=== PATIENT | female | born 1965 | race Caucasian/White ===

== ENCOUNTER 2017-03-22 09:09 | Day surgery (SDC) | payer OTHER ==
[~2017-03-22] VITALS: Ht 174 cm; Wt 76.2 kg
[~2017-03-22 09:09] MED LIST: ATEN50TA PO; FEXO1TAB8 PO; LIDOCAINE 1% (10mg/ml) 2ml SDV INJ ONE; LR 1,000 ML IV SCH; OMEP40CA52 PO; SERT100T12 PO; SIMV20TA6 PO
[2017-03-22 09:23] VITALS: BP 135/87; PULSE 72; RESP 18; TEMP 98.1; O2SAT 97; Ht 174 cm; Wt 76.2 kg
--- NOTE | 2017-03-22 10:48 | ANESPREOP ---
Anesthesia Record Date and Time DATE: 03/22/17 TIME: 10:47 Proposed Surgical Procedure COLONOSCOPY AND EGD NPO since: 2199 Allergies: Coded Allergies: No Known Allergies (Unverified , 03/22/17) Ht/Wt/BMI Height: 5 ' 8.50 " Weight: 76.200 kg BMI: 25.2 kg/m2 Vital Signs Date Time Temp Pulse Resp B/P Pulse Ox O2 Delivery O2 Flow Rate FiO2 03/22/17 09:23 98.1 72 18 135/87 97 Room Air Medications Inpatient Medications Current Medications Medications (Trade) Dose Ordered Sig/Kyle Start Time Stop Time Status Last Admin Dose Admin Lactated Ringer's (Lactated Ringers) 1,000 ml @ 50 mls/hr Q20H 03/22/17 07:00 03/22/17 09:47 50 MLS/HR Atenolol (Atenolol) 50 Mg Tablet, 1 TAB PO DAILY, (Reported) Last Taken: on 03/21/17 0800 Fexofenadine/Pseudoephedrine (Mary-D 12 Hour Tablet) 1 Each Tab.er.12h, 1 TAB PO DAILY, (Reported) Last Taken: on 03/21/17 0800 Omeprazole (Omeprazole) 40 Mg Capsule.dr, 1 TAB PO DAILY, (Reported) Last Taken: on 03/21/17 0800 Sertraline (Sertraline) 100 Mg Tablet, 1 TAB PO DAILY, (Reported) Last Taken: on 03/21/17 0800 Simvastatin (Simvastatin) 20 Mg Tablet, 1 TAB PO DAILY, (Reported) Last Taken: on 03/21/17 0800 Currently on Beta Courtney: Yes Beta Courtney Last Taken: ATENOLOL @ 0800 03/22/17 Medical/Surgical History Anesthesia PMH: Reports: *Hypertension, Anesthesia Reactions (NO AIRWAY ISSUES , VOMITING), Hiatal Hernia, Reflux, Denies: Cancer, Clotting Problems, Glaucoma , Malignant Hyperthermia, Sleep Apnea Smoking Status: Current every day smoker Has pt. smoked today?: No # of Years: 32 Substance Use Type: does not use Alcohol Intake: none HX of Last Menstrual Period: PARTIAL HYST. Past Surgical History Orthopedic Surgeries: Abdominal Surgeries: Genitourinary Surgeries: Cardiac Surgeries: Endocrine Surgeries: Reproductive Surgeries: Yes - PARTIAL HYST., C.SECTION Neurological Surgeries: Ear Surgeries: Nose Surgeries: Throat Surgeries: Other Surgeries: Yes - cystocele, rectocele per h&p Anesthesia Adverse Reactions: FOUND nausea and vomiting Family Hx of Anesthesia Advers: none Hx of Motion Sickness: No Physical Exam Respiratory: Bilat breath sounds equal, Lungs clear Cardiovascular: FOUND Regular rate, rhythm Airway Assessment Mallampati Score: I TMD: 3 Fingerbreadths Neck Extension: Good Teeth: Chipped Teeth/Crowns Overall Assessment: No Airway Concerns ASA: 2 Plan Anesthesia Plan: TIVA, GETA Discussion Discussed risks/options/alternatives of anesthesia and questions answered. Patient consents. Nursing pain assessment noted. Present: Family Member Attestation Statement Prior to the delivery of any anesthetic medication, I examined the patient, developed the plan, obtained the patient's consent and discussed the risk and benefits of the procedure with the patient/guardian. BURAK HARE CRNA March 22, 2017 10:48
[2017-03-22] MEDS ORDERED: PROPOFOL 500mg 50 ML IV ONE ×2 (11:00→12:25)
[2017-03-22] MEDS ORDERED: SCOPOLAMINE 1.5 MG PATCH TD ONE (11:00)
[2017-03-22] MEDS ORDERED: LIDOCAINE VISCOUS 2% Oral Soln 15ml UD ONE (11:50)
[2017-03-22] MEDS ORDERED: BENZOCAINE 20% Top. Anesth. SPRAY UD ONE (11:50)
[2017-03-22 12:43] VITALS: BP 120/77; PULSE 84; RESP 20; TEMP 97.4; O2SAT 97
[2017-03-22 12:50] VITALS: BP 111/59; PULSE 78; RESP 17; O2SAT 98
--- NOTE | 2017-03-22 12:52 | GSPOSTPROC ---
Immediate Operative Note DATE: 03/22/17 TIME: 12:51 Postop Diagnosis: Gastric polyps,Colon polyp Surgical Procedure: EGD w/Biopsies, C-scope w/Polypectomy Surgeon: Patsy ASA: 2 MIREYA ANDRE MD March 22, 2017 12:52
[2017-03-22 13:00] VITALS: BP 143/73; PULSE 81; RESP 16; O2SAT 99
[2017-03-22 13:10] VITALS: BP 119/72; PULSE 75; RESP 17; O2SAT 100
--- NOTE | 2017-03-22 13:17 | ANESPO ---
Post-Op Note Date 03/22/17 Time: 13:15 Status Pt Participated in Evaluation: Pt participated in person Vital Signs Date Time Temp Pulse Resp B/P Pulse Ox O2 Delivery O2 Flow Rate FiO2 03/22/17 13:10 75 17 119/72 100 Room Air 03/22/17 12:43 97.4 Respiratory Function: Airway patent, Regular respirations Mental Status: Alert/oriented Pain Level Intensity: 0 Unable to Assess Pain Due To: Medicated/Sleeping Hydration: Taking po fluids Complications during Recovery None apparent Follow-Up Instructions Instructions Per Surgeon BURAK HARE CRNA March 22, 2017 13:17
[2017-03-22] MEDS ORDERED: IBUPROFEN 800 MG TABLET PO ONE (13:30)
--- NOTE | 2017-03-23 09:50 | OPNOTEF ---
DATE OF OPERATION 03/22/2017 PREOPERATIVE DIAGNOSES 1. Long-standing gastroesophageal reflux disease. 2. Positive family history of colon carcinoma. 3. Desire for screening for colon and rectal carcinoma. POSTOPERATIVE DIAGNOSES 1. Long-standing gastroesophageal reflux disease. 2. Gastric polyps. 3. Positive family history of colon carcinoma. 4. Colon polyp. OPERATION Esophagogastroduodenoscopy with biopsies and total colonoscopy with polypectomy. SURGEON Dr. Patsy CASTILLO ASA Class 2 FINDINGS The esophageal mucosa appeared completely normal. There was no distal esophagitis. There were no esophageal erosions or ulcers. There were no Hammer's esophagus changes at the esophagus. The patient did have some small polyps at the fundus and cardia of the stomach. The gastric mucosa otherwise appeared completely normal. There were no gastric ulcers or erosions. Duodenal mucosa appeared completely normal. There were no colon or rectal tumors. The patient did have one colon polyp located 25 cm proximal to the anal verge. There were no rectal polyps. There was no melanosis coli. There were no colonic angiodysplasia lesions. There was no colonic diverticulosis. There was no inflammatory bowel disease at the colon or rectum. DESCRIPTION OF OPERATION The patient was brought to the endoscopy room. The patient was placed on a cart in the endoscopy room. The patient was placed in left lateral recumbent position on the cart. The patient was premedicated with intravenous sedation medication administered by the nurse reinstatement clerk. The Olympus upper GI endoscope was used. The upper GI endoscope was introduced into the esophagus. The upper GI endoscope was advanced down through the esophagus and stomach and into the duodenum. The upper GI endoscope was then withdrawn from the duodenum back into the stomach. The upper GI endoscope was retroflexed and the gastroesophageal junction was viewed from below. The patient was noted to have some small polyps at the cardia and fundus of the stomach. The cold endoscopic biopsy forceps was used to remove two of the small gastric polyps. Each of these polyps was submitted as a specimen for study by the pathologist. The upper GI endoscope was straightened out. Stomach was examined further. The upper GI endoscope was then withdrawn out through the stomach and esophagus and removed from the patient. The patient was kept in left lateral recumbent position on the cart in the endoscopy room. The patient continued to receive intravenous sedation medication administered by the nurse reinstatement clerk. Total colonoscopy was performed. The Olympus colonoscope was used. The colonoscope was introduced into the rectum. The colonoscope was advanced up through the rectum and colon all the way up to the cecum. The appendiceal orifice was visualized. The ileocecal valve was visualized. The colonoscope was then withdrawn out through the colon. As the colonoscope was withdrawn out through the colon, a polyp was identified at a level 25 cm proximal to the anal verge. This polyp was removed with the electrocautery snare device and retrieved and submitted as a specimen for study by the pathologist. The colonoscope was then withdrawn the remainder of the way out through the colon and rectum and removed from the patient. Digital rectal examination was performed. Findings throughout the procedure were as described above. The patient did continue to receive intravenous sedation medication administered by the nurse reinstatement clerk throughout the operation. The patient did tolerate the operation well. [place]
== END 2017-03-22 13:30 | disposition home or self-care (01) ==
LOC: SCU 09:09
PROVIDERS: ATTEND Surgery
DX: Z12.11 Encounter for screening for malignant neoplasm of colon (principal); D12.6 Benign neoplasm of colon, unspecified; Z80.0 Family history of malignant neoplasm of digestive organs; K31.7 Polyp of stomach and duodenum; K21.9 Gastro-esophageal reflux disease without esophagitis; I34.0 Nonrheumatic mitral (valve) insufficiency; F17.210 Nicotine dependence, cigarettes, uncomplicated; F32.9 Major depressive disorder, single episode, unspecified; E78.5 Hyperlipidemia, unspecified; J30.2 Other seasonal allergic rhinitis; Z79.82 Long term (current) use of aspirin; Z79.899 Other long term (current) drug therapy
CPT/HCPCS: 43239; 45385; J7120